=== PATIENT | male | born 1970 | race Caucasian/White ===

== ENCOUNTER → 2020-08-01 18:16 | Outpatient (CLI) | payer MEDICAID, SELFPAY ==
[2020-08-01 18:30] LABS: Basophils # 0.1 K/mm3 (0-0.2); Basophils % 0.9 % (0.1-2.0); Eosinophils # 0.1 K/mm3 (0.0-0.4); Eosinophils % 1.6 % (0.1-12.0); Hematocrit 54.3 % (42.0-52.0); Hemoglobin 17.7 g/dL (14.1-18.0); Lymphocytes # 1.2 K/mm3 (0.7-4.5); Lymphocytes % 18.9 % (10-50); Mean Corpuscular HGB Conc 32.5 g/dL (31.8-35.4); Mean Corpuscular Hemoglobin 30.6 pg (27.0-31.2); Mean Corpuscular Volume 94.2 fl (80-94); Mean Platelet Volume 11.9 fl (7.4-10.4); Monocytes # 0.5 K/mm3 (0.1-1.0); Monocytes % 8.7 % (1.7-9.3); Neutrophils # 4.3 K/mm3 (1.8-7.8); Neutrophils % 69.9 % (37.0-80.0); Platelet Count 125 K/mm3 (142-424); Red Blood Count 5.77 M/mm3 (4.60-6.20); Red Cell Distribution Width 13.4 % (11.5-17.5); White Blood Count 6.1 K/mm3 (4.8-10.8)
[2020-08-01 18:35] LABS: Alanine Aminotransferase 53 U/L (12-78); Albumin Level 4.3 g/dl (3.5-5.0); Albumin/Globulin Ratio 1.8 (1.1-1.8); Alkaline Phosphatase 159 U/L (38-126); Aspartate Amino Transferase 37 U/L (17-59); Bilirubin,Total 0.5 mg/dl (0.2-1.3); Blood Urea Nitrogen 10 mg/dl (9-20); Calcium 9.3 mg/dl (8.4-10.2); Carbon Dioxide 24 mmol/L (22.0-30.0); Chloride 102 mmol/L (98-107); Chol/HDL Ratio 4.3 (1-3.5); Cholesterol 188 mg/dl (140-200); Estimated Glomerular Filt Rate 103 ml/min (>60); GFR (African American) 125 ML/MIN (>60); Globulin 2.4 g/dL (1.3-3.2); Glucose 286 mg/dl (74-100); HDL Cholesterol 44 mg/dl (40-60); Sodium 138 mmol/L (136-145); Total Protein,Serum 6.7 g/dl (6.3-8.2); Triglycerides 382 mg/dl (30-150); VLDL Cholesterol 76 mg/dL (0-40)
[2020-08-01 18:46] LABS: Direct LDL Cholesterol 88.86 mg/dL (100-129)
[2020-08-01 18:53] LABS: 25-OH Vitamin D, Total 37.1 ng/mL (30-100)
[2020-08-01 18:54] LABS: T4 (Thyroxine) 11.4 ug/dl (5.53-11.0)
[2020-08-01 19:07] LABS: Thyroid Stimulating Hormone 0.92 uIU/mL (0.465-4.68)
[2020-08-01 20:05] LABS: Creatinine,Urine Random 36 mg/dL (Not Estab.); Hemoglobin A1C 9.7 % (4.0-6.0); Microalbumin < 6.000 mg/L (0-16.7)
[2020-08-05 18:55] LABS: Testosterone, Total, LC/MS 149.8 ng/dL (264.0-916.0); Testosterone,Free 3.9 pg/mL (6.8-21.5)
== END ==
PROVIDERS: Visit Provider Family Medicine
DX: E11.9 Type 2 diabetes mellitus without complications (principal); Z79.84 Long term (current) use of oral hypoglycemic drugs
CPT/HCPCS: 80053; 80061; 82043; 82306; 82570; 83036; 84402; 84403; 84436; 84443; 85025

== ENCOUNTER → 2020-10-31 13:56 | Outpatient (CLI) | payer MEDICAID, SELFPAY ==
[2020-10-31 14:13] LABS: Alanine Aminotransferase 37 U/L (12-78); Albumin Level 4.4 g/dl (3.5-5.0); Albumin/Globulin Ratio 1.6 (1.1-1.8); Alkaline Phosphatase 112 U/L (38-126); Anion Gap 11.5 mEq/L (5-15); Aspartate Amino Transferase 35 U/L (17-59); Bilirubin,Total 0.4 mg/dl (0.2-1.3); Blood Urea Nitrogen 15 mg/dl (9-20); Calcium 9.5 mg/dl (8.4-10.2); Carbon Dioxide 29 mmol/L (22.0-30.0); Chloride 103 mmol/L (98-107); Estimated Glomerular Filt Rate 103 ml/min (>60); GFR (African American) 125 ML/MIN (>60); Globulin 2.8 g/dL (1.3-3.2); Glucose 135 mg/dl (74-100); Potassium 4.5 mmoL/L (3.5-5.1); Sodium 139 mmol/L (136-145); Total Protein,Serum 7.2 g/dl (6.3-8.2)
[2020-10-31 14:17] LABS: Hemoglobin A1C 7.1 % (4.0-6.0)
[2020-11-01 19:34] LABS: Testosterone,Total 301 ng/dL (264-916)
== END ==
PROVIDERS: Visit Provider Family Medicine
DX: E11.9 Type 2 diabetes mellitus without complications (principal); N52.9 Male erectile dysfunction, unspecified; Z79.84 Long term (current) use of oral hypoglycemic drugs
CPT/HCPCS: 80053; 83036; 84403

== ENCOUNTER → 2021-02-27 15:41 | Outpatient (CLI) | payer MEDICAID, SELFPAY ==
[2021-02-27 16:57] LABS: Basophils # 0.1 K/mm3 (0-0.2); Basophils % 0.8 % (0.1-2.0); Eosinophils # 0.1 K/mm3 (0.0-0.4); Hematocrit 50.8 % (42.0-52.0); Lymphocytes # 1.5 K/mm3 (0.7-4.5); Lymphocytes % 21.3 % (10-50); Mean Corpuscular HGB Conc 33.5 g/dL (31.8-35.4); Mean Corpuscular Hemoglobin 30.1 pg (27.0-31.2); Mean Corpuscular Volume 89.9 fl (80-94); Mean Platelet Volume 10.5 fl (7.4-10.4); Monocytes # 0.4 K/mm3 (0.1-1.0); Monocytes % 5.4 % (1.7-9.3); Neutrophils # 4.9 K/mm3 (1.8-7.8); Neutrophils % 70.5 % (37.0-80.0); Platelet Count 176 K/mm3 (142-424); Red Blood Count 5.66 M/mm3 (4.60-6.20); Red Cell Distribution Width 13.1 % (11.5-17.5); White Blood Count 6.9 K/mm3 (4.8-10.8)
[2021-02-27 17:26] LABS: Alanine Aminotransferase 62 U/L (12-78); Albumin Level 4.4 g/dl (3.5-5.0); Albumin/Globulin Ratio 1.7 (1.1-1.8); Alkaline Phosphatase 189 U/L (38-126); Anion Gap 14.4 mEq/L (5-15); Aspartate Amino Transferase 44 U/L (17-59); Bilirubin,Total 0.6 mg/dl (0.2-1.3); Blood Urea Nitrogen 13 mg/dl (9-20); Calcium 9.1 mg/dl (8.4-10.2); Carbon Dioxide 22 mmol/L (22.0-30.0); Chloride 103 mmol/L (98-107); Estimated Glomerular Filt Rate 120 ml/min (>60); GFR (African American) 145 ML/MIN (>60); Globulin 2.6 g/dL (1.3-3.2); Glucose 385 mg/dl (74-100); Potassium 4.4 mmoL/L (3.5-5.1); Sodium 135 mmol/L (136-145)
[2021-02-27 19:12] LABS: Hemoglobin A1C 10.8 % (4.0-6.0)
[2021-03-03 16:40] LABS: Testosterone, Total, LC/MS 230.4 ng/dL (264.0-916.0)
== END ==
PROVIDERS: Visit Provider Family Medicine
DX: E11.9 Type 2 diabetes mellitus without complications (principal); E29.1 Testicular hypofunction; N52.9 Male erectile dysfunction, unspecified; Z79.4 Long term (current) use of insulin
CPT/HCPCS: 80053; 83036; 84403; 85025

== ENCOUNTER → 2021-04-17 13:49 | Outpatient (CLI) | payer MEDICAID, SELFPAY ==
[2021-04-17 13:59] LABS: Alanine Aminotransferase 39 U/L (12-78); Albumin Level 4.4 g/dl (3.5-5.0); Albumin/Globulin Ratio 1.8 (1.1-1.8); Alkaline Phosphatase 104 U/L (38-126); Anion Gap 10.6 mEq/L (5-15); Aspartate Amino Transferase 36 U/L (17-59); Bilirubin,Total 0.7 mg/dl (0.2-1.3); Blood Urea Nitrogen 13 mg/dl (9-20); Calcium 9.2 mg/dl (8.4-10.2); Carbon Dioxide 30 mmol/L (22.0-30.0); Chloride 103 mmol/L (98-107); Estimated Glomerular Filt Rate 120 ml/min (>60); GFR (African American) 145 ML/MIN (>60); Globulin 2.5 g/dL (1.3-3.2); Glucose 160 mg/dl (74-100); Potassium 4.6 mmoL/L (3.5-5.1); Sodium 139 mmol/L (136-145); Total Protein,Serum 6.9 g/dl (6.3-8.2)
[2021-04-17 14:46] LABS: Hemoglobin A1C 8.8 % (4.0-6.0)
== END ==
PROVIDERS: Visit Provider Family Medicine
DX: E11.9 Type 2 diabetes mellitus without complications (principal); Z79.84 Long term (current) use of oral hypoglycemic drugs
CPT/HCPCS: 80053; 83036

== ENCOUNTER → 2021-06-05 18:09 | Outpatient (CLI) | payer MEDICAID, SELFPAY ==
[2021-06-05 19:12] LABS: Alanine Aminotransferase 31 U/L (12-78); Albumin Level 4.2 g/dl (3.5-5.0); Albumin/Globulin Ratio 1.5 (1.1-1.8); Alkaline Phosphatase 115 U/L (38-126); Anion Gap 14.7 mEq/L (5-15); Aspartate Amino Transferase 35 U/L (17-59); Bilirubin,Total 0.5 mg/dl (0.2-1.3); Blood Urea Nitrogen 16 mg/dl (9-20); Calcium 9.3 mg/dl (8.4-10.2); Carbon Dioxide 28 mmol/L (22.0-30.0); Chloride 101 mmol/L (98-107); Estimated Glomerular Filt Rate 120 ml/min (>60); GFR (African American) 145 ML/MIN (>60); Globulin 2.8 g/dL (1.3-3.2); Glucose 133 mg/dl (74-100); Potassium 4.7 mmoL/L (3.5-5.1); Sodium 139 mmol/L (136-145)
[2021-06-05 19:13] LABS: Hemoglobin A1C 8.2 % (4.0-6.0)
[2021-06-05 19:42] LABS: Thyroid Stimulating Hormone 1.14 uIU/mL (0.465-4.68)
[2021-06-07 06:30] LABS: Testosterone,Total 268 ng/dL (264-916)
== END ==
PROVIDERS: Visit Provider Family Medicine
DX: E11.9 Type 2 diabetes mellitus without complications (principal); R53.83 Other fatigue; N52.9 Male erectile dysfunction, unspecified; Z79.84 Long term (current) use of oral hypoglycemic drugs
CPT/HCPCS: 80053; 83036; 84403; 84443

== ENCOUNTER → 2021-10-09 17:26 | Outpatient (CLI) | payer MEDICAID, SELFPAY ==
[2021-10-09 19:06] LABS: Alanine Aminotransferase 34 U/L (12-78); Albumin Level 4.7 g/dl (3.5-5.0); Albumin/Globulin Ratio 2.1 (1.1-1.8); Alkaline Phosphatase 115 U/L (38-126); Anion Gap 12.2 mEq/L (5-15); Aspartate Amino Transferase 38 U/L (17-59); Bilirubin,Total 0.8 mg/dl (0.2-1.3); Blood Urea Nitrogen 15 mg/dl (9-20); Calcium 9.5 mg/dl (8.4-10.2); Carbon Dioxide 30 mmol/L (22.0-30.0); Chloride 98 mmol/L (98-107); Chol/HDL Ratio 2.5 (1-3.5); Cholesterol 106 mg/dl (140-200); Estimated Glomerular Filt Rate 103 ml/min (>60); GFR (African American) 124 ML/MIN (>60); Globulin 2.2 g/dL (1.3-3.2); Glucose 216 mg/dl (74-100); HDL Cholesterol 43 mg/dl (40-60); Potassium 4.2 mmoL/L (3.5-5.1); Sodium 136 mmol/L (136-145); Total Protein,Serum 6.9 g/dl (6.3-8.2); Triglycerides 95 mg/dl (30-150); VLDL Cholesterol 19 mg/dL (0-40)
[2021-10-09 19:12] LABS: Hemoglobin A1C 7.3 % (4.0-6.0)
[2021-10-09 19:17] LABS: Direct LDL Cholesterol 41.23 mg/dL (100-129)
[2021-10-09 19:23] LABS: Free T4 (Free Thyroxine) 1.27 ng/dl (0.78-2.19)
[2021-10-09 19:24] LABS: 25-OH Vitamin D, Total 43.4 ng/mL (30-100)
[2021-10-09 19:35] LABS: Creatinine,Urine Random 38 mg/dL (Not Estab.)
[2021-10-09 19:37] LABS: Thyroid Stimulating Hormone 1.01 uIU/mL (0.465-4.68)
[2021-10-09 19:41] LABS: Microalbumin < 6.000 mg/L (0-16.7)
[2021-10-09 19:45] LABS: Basophils % 0.7 % (0.1-2.0); Eosinophils # 0.1 K/mm3 (0.0-0.4); Eosinophils % 0.9 % (0.1-12.0); Hematocrit 54.6 % (42.0-52.0); Hemoglobin 17.4 g/dL (14.1-18.0); Lymphocytes # 1.3 K/mm3 (0.7-4.5); Lymphocytes % 20.9 % (10-50); Mean Corpuscular HGB Conc 31.9 g/dL (31.8-35.4); Mean Corpuscular Hemoglobin 30.8 pg (27.0-31.2); Mean Corpuscular Volume 96.7 fl (80-94); Mean Platelet Volume 10.3 fl (7.4-10.4); Monocytes # 0.4 K/mm3 (0.1-1.0); Monocytes % 6.1 % (1.7-9.3); Neutrophils # 4.4 K/mm3 (1.8-7.8); Neutrophils % 71.4 % (37.0-80.0); Platelet Count 194 K/mm3 (142-424); Red Blood Count 5.65 M/mm3 (4.60-6.20); Red Cell Distribution Width 13.2 % (11.5-17.5); White Blood Count 6.2 K/mm3 (4.8-10.8)
== END ==
PROVIDERS: Visit Provider Nurse Practitioner Family
DX: E03.9 Hypothyroidism, unspecified (principal); E11.9 Type 2 diabetes mellitus without complications; R53.83 Other fatigue; K59.00 Constipation, unspecified; Z79.4 Long term (current) use of insulin
CPT/HCPCS: 80053; 80061; 82043; 82306; 82570; 83036; 84439; 84443; 85025

== ENCOUNTER → 2022-01-01 16:56 | Outpatient (CLI) | payer MEDICAID, SELFPAY ==
[2022-01-01 13:49] LABS: Alanine Aminotransferase 38 U/L (12-78); Albumin Level 4.1 g/dl (3.5-5.0); Albumin/Globulin Ratio 1.9 (1.1-1.8); Alkaline Phosphatase 106 U/L (38-126); Anion Gap 13.5 mEq/L (5-15); Aspartate Amino Transferase 35 U/L (17-59); Bilirubin,Total 0.5 mg/dl (0.2-1.3); Blood Urea Nitrogen 19 mg/dl (9-20); Calcium 8.7 mg/dl (8.4-10.2); Carbon Dioxide 25 mmol/L (22.0-30.0); Chloride 102 mmol/L (98-107); Chol/HDL Ratio 3.5 (1-3.5); Cholesterol 149 mg/dl (140-200); Estimated Glomerular Filt Rate 119 ml/min (>60); GFR (African American) 144 ML/MIN (>60); Globulin 2.2 g/dL (1.3-3.2); Glucose 238 mg/dl (74-100); HDL Cholesterol 43 mg/dl (40-60); Potassium 4.5 mmoL/L (3.5-5.1); Sodium 136 mmol/L (136-145); Total Protein,Serum 6.3 g/dl (6.3-8.2); Triglycerides 181 mg/dl (30-150); VLDL Cholesterol 36 mg/dL (0-40)
[2022-01-01 14:00] LABS: Basophils # 0.1 K/mm3 (0-0.2); Basophils % 1.1 % (0.1-2.0); Eosinophils # 0.1 K/mm3 (0.0-0.4); Eosinophils % 1.6 % (0.1-12.0); Hematocrit 53.2 % (42.0-52.0); Hemoglobin 17.1 g/dL (14.1-18.0); Lymphocytes # 1.3 K/mm3 (0.7-4.5); Lymphocytes % 19.7 % (10-50); Mean Corpuscular HGB Conc 32.2 g/dL (31.8-35.4); Mean Corpuscular Hemoglobin 31.4 pg (27.0-31.2); Mean Corpuscular Volume 97.7 fl (80-94); Mean Platelet Volume 10.8 fl (7.4-10.4); Monocytes # 0.4 K/mm3 (0.1-1.0); Neutrophils # 4.5 K/mm3 (1.8-7.8); Neutrophils % 70.6 % (37.0-80.0); Platelet Count 190 K/mm3 (142-424); Red Blood Count 5.45 M/mm3 (4.60-6.20); Red Cell Distribution Width 13.6 % (11.5-17.5); White Blood Count 6.3 K/mm3 (4.8-10.8)
[2022-01-01 14:01] LABS: Direct LDL Cholesterol 64.51 mg/dL (100-129)
[2022-01-01 14:07] LABS: 25-OH Vitamin D, Total 31.5 ng/mL (30-100); T4 (Thyroxine) 11.7 ug/dl (5.53-11.0)
[2022-01-01 14:21] LABS: Thyroid Stimulating Hormone 1.35 uIU/mL (0.465-4.68)
[2022-01-01 15:03] LABS: Hemoglobin A1C 7.5 % (4.0-6.0)
[2022-01-02 10:20] LABS: C-Peptide 4.2 ng/mL (1.1-4.4)
== END ==
PROVIDERS: Visit Provider Nurse Practitioner Family
DX: E11.9 Type 2 diabetes mellitus without complications (principal); E66.3 Overweight; Z68.32 Body mass index [BMI] 32.0-32.9, adult; Z79.4 Long term (current) use of insulin
CPT/HCPCS: 80053; 80061; 82306; 83036; 84436; 84443; 84681; 85025

== ENCOUNTER → 2022-04-23 14:22 | Outpatient (CLI) | payer MEDICAID, SELFPAY ==
[2022-04-23 14:35] LABS: Hemoglobin A1C 7.5 % (4.0-6.0)
== END ==
PROVIDERS: PCP Family Medicine; Visit Provider Family Medicine
DX: E11.9 Type 2 diabetes mellitus without complications (principal); Z79.4 Long term (current) use of insulin
CPT/HCPCS: 83036

== ENCOUNTER → 2022-05-17 09:47 | Outpatient (CLI) | payer MEDICAID, SELFPAY ==
--- NOTE | 2022-05-17 09:50 | XR_ITS ---
FINAL REPORT CLINICAL HISTORY: left shoulder pain FINDINGS: Internal and external rotation views of the left shoulder were obtained. There is no prior exam for comparison. There is no fracture or dislocation. There is mild acromioclavicular joint degenerative disease. Soft tissues are normal. IMPRESSION: Degenerative change with no acute osseous abnormality of the left shoulder. Reviewed, Interpreted and Dictated by Rafaela Huntley MD Transcribed by Feli Rdz Authenticated and [facility]
--- NOTE | 2022-05-17 09:50 | XR_ITS ---
FINAL REPORT CLINICAL HISTORY: right shoulder pain FINDINGS: Internal and external rotation views of the right shoulder were obtained. There is no prior exam for comparison. There is no fracture or dislocation. The joint space is preserved. Soft tissues are normal. IMPRESSION: No acute osseous abnormality of the right shoulder. Reviewed, Interpreted and Dictated by Rafaela Huntley MD Transcribed by Feli Rdz Authenticated and [facility]
== END ==
PROVIDERS: PCP Family Medicine; Visit Provider Orthopaedic Surgery
DX: M25.512 Pain in left shoulder (principal); M25.511 Pain in right shoulder
CPT/HCPCS: 73030

== ENCOUNTER → 2022-12-04 11:00 | Outpatient (CLI) | payer MEDICAID, SELFPAY ==
[2022-12-04 14:37] LABS: Microalbumin/Creatinine Ratio 7.6
[2022-12-04 14:39] LABS: Creatinine,Urine Random 93 mg/dL (Not Estab.)
[2022-12-04 15:09] LABS: Hemoglobin A1C 8.2 % (4.0-6.0)
[2022-12-13 15:24] LABS: Testosterone, Total, LC/MS 144.2 ng/dL (264.0-916.0); Testosterone,Free 1.2 pg/mL (7.2-24.0)
== END ==
PROVIDERS: PCP Family Medicine; Visit Provider Family Medicine
DX: E11.9 Type 2 diabetes mellitus without complications (principal); Z79.4 Long term (current) use of insulin; E29.1 Testicular hypofunction
CPT/HCPCS: 82043; 82570; 83036; 84402; 84403

== ENCOUNTER → 2023-03-05 13:23 | Outpatient (CLI) | payer MEDICAID, SELFPAY ==
[2023-03-05 13:04] LABS: Creatinine,Urine Random 81 mg/dL (Not Estab.); Microalbumin < 6.000 mg/L (0-16.7)
== END ==
PROVIDERS: PCP Family Medicine; Visit Provider Family Medicine
DX: E11.9 Type 2 diabetes mellitus without complications (principal); Z79.4 Long term (current) use of insulin
CPT/HCPCS: 82043; 82570

== ENCOUNTER → 2023-07-02 09:36 | Outpatient (CLI) | payer MEDICAID, SELFPAY ==
[2023-07-01 19:53] LABS: Alanine Aminotransferase 31 U/L (12-78); Albumin Level 4.1 g/dl (3.5-5.0); Albumin/Globulin Ratio 1.4 (1.1-1.8); Alkaline Phosphatase 105 U/L (38-126); Anion Gap 8.3 mEq/L (5-15); Aspartate Amino Transferase 45 U/L (17-59); Bilirubin,Total 0.8 mg/dl (0.2-1.3); Blood Urea Nitrogen 12 mg/dl (9-20); Calcium 8.6 mg/dl (8.4-10.2); Carbon Dioxide 29 mmol/L (22.0-30.0); Chloride 104 mmol/L (98-107); Chol/HDL Ratio 5.4 (1-3.5); Cholesterol 172 mg/dl (140-200); Estimated Glomerular Filt Rate 89 ml/min (>60); GFR (African American) 108 ML/MIN (>60); Globulin 2.9 g/dL (1.3-3.2); Glucose 186 mg/dl (74-100); HDL Cholesterol 32 mg/dl (40-60); Potassium 4.3 mmoL/L (3.5-5.1); Sodium 137 mmol/L (136-145); Triglycerides 129 mg/dl (30-150); VLDL Cholesterol 26 mg/dL (0-40)
[2023-07-01 20:04] LABS: Direct LDL Cholesterol 104.73 mg/dL (100-129)
[2023-07-01 20:22] LABS: Hemoglobin A1C 7.2 % (4.0-6.0)
== END ==
PROVIDERS: PCP Family Medicine; Visit Provider Family Medicine
DX: E11.9 Type 2 diabetes mellitus without complications (principal); Z79.4 Long term (current) use of insulin; Z79.84 Long term (current) use of oral hypoglycemic drugs
CPT/HCPCS: 80053; 80061; 83036

== ENCOUNTER 2023-12-02 18:32 | Outpatient (CLI) | payer MEDICAID, SELFPAY ==
[2023-12-02 18:12] LABS: Basophils # 0.2 K/mm3 (0-0.2); Basophils % 1.3 % (0.1-2.0); Eosinophils # 0.1 K/mm3 (0.0-0.4); Eosinophils % 0.9 % (0.1-12.0); Lymphocytes # 2.8 K/mm3 (0.7-4.5); Lymphocytes % 24.1 % (10-50); Mean Corpuscular HGB Conc 31.6 g/dL (31.8-35.4); Mean Corpuscular Hemoglobin 30.8 pg (27.0-31.2); Mean Corpuscular Volume 97.7 fl (80-94); Mean Platelet Volume 10.3 fl (7.4-10.4); Monocytes # 0.8 K/mm3 (0.1-1.0); Monocytes % 7.2 % (1.7-9.3); Neutrophils # 7.7 K/mm3 (1.8-7.8); Neutrophils % 66.5 % (37.0-80.0); Platelet Count 232 K/mm3 (142-424); Red Blood Count 6.06 M/mm3 (4.60-6.20); Red Cell Distribution Width 13.8 % (11.5-17.5); White Blood Count 11.6 K/mm3 (4.8-10.8)
[2023-12-02 18:33] LABS: Hematocrit 59.2 % (42.0-52.0)
[2023-12-02 18:34] LABS: Hemoglobin 18.7 g/dL (14.1-18.0)
[2023-12-02 19:10] LABS: Prostate Specific Ag Screen 2.3 ng/ml (0.0-4.0)
[2023-12-04 09:21] LABS: Testosterone,Total 477 ng/dL (264-916)
== END 2023-12-02 23:59 ==
LOC: LAB.DROPOF 18:32
PROVIDERS: PCP Family Medicine; Visit Provider Family Medicine
DX: E11.9 Type 2 diabetes mellitus without complications (principal); N52.1 Erectile dysfunction due to diseases classified elsewhere; Z79.4 Long term (current) use of insulin; Z79.84 Long term (current) use of oral hypoglycemic drugs
CPT/HCPCS: 84403; 85025; G0103

== ENCOUNTER 2024-01-27 14:00 | Outpatient (RCR) | payer MEDICAID, SELFPAY ==
--- NOTE | 2024-01-15 15:06 | HMH.OTOPEV ---
OT Inpatient Evaluation Rehab OT Outpatient Eval Start: 01/15/24 14:56 Freq: Status: Active Protocol: Document 01/15/24 14:56 [email or web address] (Rec: 01/15/24 15:03 OSITO [id number]) E-signed By Sanjuana [place], OT Outpatient Therapy Subjective History Subjective History 53 year old male referred to skilled OP OT services for B shld pain. Patient reported having B UE shld pain for over 3 months with no relief. No images done at this time. 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 New diagnosis of cancer in past 12 No months? Chief Complaint Pain,Weakness Symptom Type Ache Symptoms Relieved By Nothing Symptoms Aggravated By Physical Activity Prior Functional Limitations None Current Functional Limitations Reaching,Lifting,Sleeping, Recreation Activity Symptom Description Constant and Continuous Level of pain today (0-10) 4 Pain scale - at its best (0-10) 4 Pain scale - at its worst (0-10) 9 Shoulder/Elbow Eval Shoulder Objective Measurements Shoulder ROM Bilateral Shoulder Abduction Active Range of 130 Motion (degrees) Shoulder Flexion Active Range of Motion 130 (degrees) Query Text: Shoulder External Rotation Active Range 50 of Motion (degrees) Shoulder Internal Rotation Active Range 40 of Motion (degrees) pain with active ROM shoulder exam bilateral standard pain with passive ROM shoulder exam bilateral standard Shoulder MMT Shoulder Abduction Strength Grade 3- Fair- Shoulder Extension Strength Grade 3- Fair- Shoulder Flexion Strength Grade 3- Fair- Shoulder Horizontal Abduction Strength 3- Fair- Grade Shoulder Horizontal Adduction Strength 3- Fair- Grade Infraspinatus/Teres Minor Strength Grade 3- Fair- Shoulder External Rotation Strength 3- Fair- Grade Shoulder Internal Rotation Strength 3- Fair- Grade Shoulder Special Tests impingement sign present shoulder exam bilateral standard Shoulder Gupta-Heraclio Impingement Positive Left,Positive Right Test Elbow Objective Measurements QuickDASH Activities Please rate your ability to do the following activities in the last week by selecting the number below the appropriate response. 1. Open a tight or new jar. Severe difficulty 2. Do heavy opticianry teacher (e.g., wash Severe difficulty [place], floors). 3. Carry a shopping bag or briefcase. Mild difficulty 4. Wash your back. Moderate difficulty 5. Use a knife to cut food. Moderate difficulty 6. Recreational activities in which you Severe difficulty take some force or impact through your arm, shoulder, or hand (e.g., golf, hammering, tennis, etc.). 7. During the past week, to what extent Extremely has your arm, shoulder or hand problem interfered with your normal social activities with family, friends, neighbors or groups? 8. During the past week, were you Moderately limited limited in your work or other regular daily activites as a result of your arm, shoulder or hand problem? 9. Arm, shoulder or hand pain. Extreme 10. Tingling (pins and needles) in your Moderate arm, shoulder or hand. 11. During the past week, how much So much difficulty that I can' difficulty have you had sleeping because t sleep of the pain in your arm, shoulder or hand? Quick DASH 41 Work Module (optional) The following questions ask about the impact of your arm, shoulder or hand problem on your ability to work (including homemaking if that is your main work role). Please indicate what your job/work is: does not work Do you work? No OT Outpatient Assessment Impairments Problems/Impairments Impaired Range of Motion, Impaired Strength,Subjective C /O Pain Prognosis Rehab Potential Good Clinical Impression Consistent with Diagnosis Yes Short Term Goals Number of Weeks 2 Increase Range of Motion Yes: Improve AROM of B UE shld flex: 150; abd: 150; er: 60; ir: 50 Increase Strength Yes: Improve B UE shld strength to 3 to 3+/5 throughout Decrease Subjective C/O Pain Yes: 7/10 pain at worst Patient to be Ind w/ HEP Yes: AAROM Patient to be Ind w/ Advanced HEP Yes: Strengthening Improve Quick Dash Score Yes: 35 Hot Die Press Operator Goals Number of Weeks 4 Increase Range of Motion Yes: Improve AROM of B UE shld flex: 160; abd: 160; er: 70; ir: 60 Increase Strength Yes: Improve B UE shld strength to 3+/5 to 4-/5 throughout Decrease Subjective C/O Pain Yes: 5/10 pain at worst Patient to be Ind w/ HEP Yes: AROM Patient to be Ind w/ Advanced HEP Yes: Advance strengthening Improve Quick Dash Score Yes: 30 Outpatient Therapy Plan of Care Treatment Plan May Include Therapeutic Exercise Including Home Yes Exercise Program Manual Therapy Techniques Yes Therapeutic Activities to Return to Yes Previous Functional/Work Level Thermal Modalities Yes Electrical Stimulation Yes Ultrasound/Phonophoresis Yes Iontophoresis Yes Eval/Re-Eval Yes Aquatic Therapy Yes Frequency Times per week 2x/wk Duration Number of Weeks 4 weeks Addendums This patient is a candidate for social No or vocational rehab? Patient/Guardian verbally acknowledges Yes understanding of treatment program and consents to further treatment? Patient/Guardian verbally acknowledges Yes understanding of diagnosis, prognosis and goals for treatment? Eval Complexity OT Charge 69555 - Low Complexity PHYSICIAN CERTIFICATION: I certify the specified therapy services for Milo Wlals are required, authorized, and reviewed every 30 days.
== END 2024-01-27 14:05 | disposition home or self-care (01) ==
LOC: OT 14:00
PROVIDERS: Visit Provider Family Medicine
DX: M25.511 Pain in right shoulder (principal); M25.512 Pain in left shoulder
CPT/HCPCS: 97010; 97014; 97110; 97165; G0283

== ENCOUNTER 2024-02-25 13:37 | Outpatient (CLI) | payer MEDICAID, SELFPAY ==
--- NOTE | 2024-02-25 13:38 | MR_ITS ---
FINAL REPORT CLINICAL HISTORY: BILATERAL SHOULDER PAIN PAIN WHEN LIFTING ARMS FINDINGS: Multiplanar MR imaging of the left shoulder was performed without contrast. Intrasubstance tears are seen of the distal supraspinatus and infraspinatus tendons involving less than 50% of the thickness of the tendons. No full-thickness rotator cuff tear is identified. There is mild AC joint arthrosis. A small amount of fluid is present in the subacromial/subdeltoid bursa. The labrum is suboptimally visualized, but there is abnormal signal in the superior labrum worrisome for a SLAP tear. The long head of the biceps tendon is intact. No significant glenohumeral joint effusion is seen. There is no evidence of fracture or dislocation. The musculature is intact. There is no evidence of soft tissue mass. IMPRESSION: Small intrasubstance tears of the distal supraspinatus and infraspinatus tendons. Findings worrisome for a SLAP tear. Authenticated and [facility]
--- NOTE | 2024-02-25 13:38 | MR_ITS ---
FINAL REPORT CLINICAL HISTORY: BILATERAL SHOULDER PAIN PAIN WHEN LIFTING ARMS FINDINGS: Multiplanar MR imaging of the right shoulder was performed without contrast. Many of the images are degraded by motion artifact. A partial-thickness articular surface tear is seen of the distal supraspinatus tendon involving greater than 50% of the thickness of the tendon. Also noted is a partial-thickness articular surface tear of the distal infraspinatus tendon involving less than 50% of the thickness of the tendon. No definite full-thickness rotator cuff tear is identified. There is mild AC joint arthrosis. A small amount of fluid is present in the subacromial/subdeltoid bursa. The labrum is somewhat obscured by motion, but there is a linear increased signal in the superior labrum visualized on series 4 images 12 and 13 worrisome for a SLAP tear. The long head of the biceps tendon is intact. A small glenohumeral joint effusion is seen. There is no evidence of fracture or dislocation. The musculature is intact. Subchondral cysts are seen in the anterior humeral head with adjacent bone marrow edema. IMPRESSION: Findings worrisome for a SLAP tear. Partial-thickness articular surface tear of the distal supraspinatus tendon involving greater than 50% of the thickness of the tendon. Partial-thickness articular surface tear of the distal infraspinatus tendon involving less than 50% of the thickness of the tendon. Authenticated and [facility]
== END 2024-02-25 23:59 | disposition home or self-care (01) ==
LOC: RAD 13:38
PROVIDERS: PCP Family Medicine; Visit Provider Family Medicine
DX: M25.511 Pain in right shoulder (principal); M25.512 Pain in left shoulder
CPT/HCPCS: 73221

== ENCOUNTER 2024-04-09 14:20 | Outpatient (CLI) | payer MEDICAID, SELFPAY ==
--- NOTE | 2024-04-09 14:28 | XR_ITS ---
FINAL REPORT CLINICAL HISTORY: mike shoulder pain FINDINGS: 2 views of the left shoulder were obtained. There are mild degenerative changes of the acromioclavicular joint. There is no fracture or dislocation. The joint space is preserved. Soft tissues are normal. IMPRESSION: No acute osseous abnormality of the left shoulder. Reviewed, Interpreted and Dictated by Rafaela Huntley MD Transcribed by Nguyen Sexton Authenticated and [facility]
--- NOTE | 2024-04-09 14:39 | XR_ITS ---
FINAL REPORT CLINICAL HISTORY: Right Shoulder pain FINDINGS: 2 views of the right shoulder were obtained. There are mild degenerative changes of the acromioclavicular joint. There is no fracture or dislocation. The joint space is preserved. Soft tissues are normal. IMPRESSION: No acute osseous abnormality of the right shoulder. Reviewed, Interpreted and Dictated by Rafaela Huntley MD Transcribed by Nguyen Sexton Authenticated and [facility]
== END 2024-04-09 23:59 | disposition home or self-care (01) ==
PROVIDERS: PCP Family Medicine; Visit Provider Orthopaedic Surgery
DX: M25.511 Pain in right shoulder (principal); M25.512 Pain in left shoulder
CPT/HCPCS: 73030

== ENCOUNTER 2024-09-11 10:51 | Outpatient (CLI) | payer MEDICAID, SELFPAY ==
--- NOTE | 2024-09-11 11:47 | ECG_ITS ---
APPROVED REPORT Exam: Resting ECG HR:74 bpm ECG Measurements Heart Rate 74 AXES ME 136 P 16 QRSd 107 QRS -19 QT 381 T 19 QTc 409 Conclusion SINUS RHYTHM MINIMAL VOLTAGE CRITERIA FOR LVH, CONSIDER NORMAL VARIANT [MEETS CRITERIA IN ONE OF: R(aVL), S(V1), R(V5), R(V5/V6)+S(V1)] BORDERLINE ECG UNCONFIRMED REPORT Electronically signed by : Paulie Arita MD 09/19/2024 13:43:30
[2024-09-11 11:52] VITALS: BMI 37.5
[2024-09-11 12:18] LABS: Chloride 102 mmol/L (98-107); Potassium 3.9 mmoL/L (3.5-5.1); Sodium 132 mmol/L (136-145)
[2024-09-11 12:21] LABS: Anion Gap 4.9 mEq/L (5-15); Blood Urea Nitrogen 15 mg/dl (9-20); Carbon Dioxide 29 mmol/L (22.0-30.0); Creatinine Clearance Estimated 121 mL/min (50-200); Estimated Glomerular Filt Rate 70 ml/min (>60); GFR (African American) 85 ML/MIN (>60)
[2024-09-11 12:22] LABS: Calcium 8.2 mg/dl (8.4-10.2); Glucose 265 mg/dl (74-100)
[2024-09-11 12:59] LABS: Hematocrit 51.1 % (42.0-52.0); Hemoglobin 16.9 g/dL (14.1-18.0); Mean Corpuscular Volume 90.6 fl (80-94); Red Blood Count 5.64 M/mm3 (4.60-6.20); White Blood Count 6.3 K/mm3 (4.8-10.8)
[2024-09-11 13:00] LABS: Mean Corpuscular HGB Conc 33.1 g/dL (31.8-35.4); Platelet Count 126 K/mm3 (142-424); Red Cell Distribution Width 12.4 % (11.5-17.5)
[2024-09-11 13:02] LABS: Mean Platelet Volume 12.7 fl (7.4-10.4)
[2024-09-11 13:50] LABS: Neutrophils % 68.3 % (37.0-80.0)
[2024-09-11 13:51] LABS: Basophils # 0.1 K/mm3 (0-0.2); Basophils % 0.9 % (0.1-2.0); Eosinophils # 0.1 K/mm3 (0.0-0.4); Eosinophils % 1.6 % (0.1-12.0); Lymphocytes # 1.2 K/mm3 (0.7-4.5); Lymphocytes % 18.7 % (10-50); Monocytes # 0.6 K/mm3 (0.1-1.0); Monocytes % 9.9 % (1.7-9.3); Neutrophils # 4.4 K/mm3 (1.8-7.8)
== END 2024-09-11 23:59 | disposition home or self-care (01) ==
LOC: PREOP 10:52
PROVIDERS: Nurse Anesthetist, Certified Registered; PCP Family Medicine; Visit Provider Orthopaedic Surgery
DX: R94.31 Abnormal electrocardiogram [ECG] [EKG] (principal)
CPT/HCPCS: 80048; 85025; 93005

== ENCOUNTER 2024-11-06 06:02 | Day surgery (SDC) | payer MEDICAID, SELFPAY ==
[2024-11-03 12:08] VITALS: BMI 37.5
[2024-11-06] VITALS (10 sets, daily range): BP systolic 135–169; BP diastolic 81–96; PULSE 79–96; RESP 16–20; TEMP 36.3–36.4; O2SAT 92–98
[2024-11-06] MEDS: LACTATED RINGERS 1000ML 1,000 ML 100 ML IV (06:59)
[2024-11-06 07:35] LABS: Basophils # 0.1 K/mm3 (0-0.2); Basophils % 0.8 % (0.1-2.0); Eosinophils # 0.2 K/mm3 (0.0-0.4); Eosinophils % 1.7 % (0.1-12.0); Hematocrit 51.8 % (42.0-52.0); Hemoglobin 17.3 g/dL (14.1-18.0); Lymphocytes # 1.6 K/mm3 (0.7-4.5); Lymphocytes % 18.8 % (10-50); Mean Corpuscular HGB Conc 33.4 g/dL (31.8-35.4); Mean Corpuscular Hemoglobin 29.6 pg (27.0-31.2); Mean Corpuscular Volume 88.7 fl (80-94); Mean Platelet Volume 11.1 fl (7.4-10.4); Monocytes # 0.9 K/mm3 (0.1-1.0); Monocytes % 9.8 % (1.7-9.3); Neutrophils % 68.3 % (37.0-80.0); Platelet Count 190 K/mm3 (142-424); Red Blood Count 5.84 M/mm3 (4.60-6.20); Red Cell Distribution Width 12.1 % (11.5-17.5); White Blood Count 8.7 K/mm3 (4.8-10.8)
[2024-11-06 07:47] LABS: Chloride 97 mmol/L (98-107); Sodium 135 mmol/L (136-145)
[2024-11-06 07:48] LABS: Potassium 4.1 mmoL/L (3.5-5.1)
[2024-11-06 07:50] LABS: Anion Gap 11.1 mEq/L (5-15); Blood Urea Nitrogen 17 mg/dl (9-20); Carbon Dioxide 31 mmol/L (22.0-30.0); Creatinine Clearance Estimated 133 mL/min (50-200); Estimated Glomerular Filt Rate 78 ml/min (>60); GFR (African American) 95 ML/MIN (>60)
[2024-11-06 07:51] LABS: Calcium 8.6 mg/dl (8.4-10.2); Glucose 171 mg/dl (74-100)
[2024-11-06] MEDS: CEFAZOLIN SODIUM 2 GM in 0.9 % SODIUM CHLORIDE 100 ML IV (08:15)
[2024-11-06] MEDS: EPINEPHrine 1MG/ML 30ML VIAL 30 MG (08:40)
--- NOTE | 2024-11-06 10:04 | P.OP_ITS ---
Date of procedure: 11/06/24 Pre-op Diagnosis:: Right shoulder SLAP tear Right shoulder rotator cuff tear Right shoulder impingement Post-op Diagnosis:: Same Procedure performed:: 1. Right shoulder arthroscopy with arthroscopic rotator cuff repair 2. Right shoulder arthroscopy with superior labral anterior to posterior repair Surgeon:: Zion Spencer DO Fuel Distribution System Operator(s):: John MCKEON Anesthesia: GETA and regional Estimated blood loss (mL): 0 Operative findings:: See dictation Operative note:: Patient notified preoperatively. Right shoulder marked with yes and my initials. Transported operative suite after undergoing a block with anesthesia. Then placed upon the operating bed general anesthesia administered airway secured. Placed in the lateral position on the beanbag with all bony prom inences well-padded axillary roll placed to right arm placed inline traction with the lateral arm vega. Right shoulder prepped and draped normal sterile fashion. Once prepped and draped final operative timeout performed to identify proper patient procedure and extremity. Everyone involved the case agreed. There is no counter indications to beginning. Did receive preoperative antibiotics. Marking pen was used to lupe the bony landmarks of the shoulder and standard portal sites. Skin knife is used to incise standard posterior viewing portal and blunt with trocar was placed in the glenohumeral joint. So exchanged with a camera I went directly above the subscapularis to the anterior aspect of the shoulder where the anterior working portal was made and purple cannula was placed. Diagnostic arthroscopy began. Upon entering the anterior aspect of the shoulder there was some mild interbody tearing of the subscapularis tendon tensions brought in the glenohumeral joint there was a displaced unstable SLAP tear of the superior labrum. Attention was then brought to repair of the labrum. Rasp was placed to prepare the insertion bed of the superior labrum back to the glenoid. Tensions then brought to repair of the anterior aspect of the SLAP tear. Passer was placed through the anterior labrum and drill was utilized to drill for the push lock push lock anchors were placed anteriorly to repair the labrum back to the glenoid additional push lock placed posteriorly to repair the SLAP tear this was stable repair anchoring the superior labrum and biceps stably back to the glenoid. Attention was then brought to the subscapularis tear there is interbody tear which was debrided electrocautery was used to debride there was no full- thickness displaced tear of the subscapularis. Attention was then brought superior to the rotator cuff there was evidence of tearing on the articular surface of the rotator cuff this was debrided with a sucker shaver. Attention was then brought the subacromial space. There was a fair amount of subacromial bursitis which was debrided. And attention was brought to the rotator cuff which was nearly fully torn at the insertion site supraspinatus. Debridement of the edge was performed. An rotator cuff was repaired in a standard fashion with the Arthrex speed fix method with fiber tape placed through the rotator cuff and single swivel lock anchor 4.75 mm. This concluded the rotator cuff repair bursectomy completed can remove joint drain skin closed nylon stitch sterile dressing placed. Patient with anesthesia taken recovery in stable condition with a shoulder sling and pillow. Condition: stable Disposition: PACU Complications:: None apparent
--- NOTE | 2024-11-06 10:11 | P.PNANES_ITS ---
[facility] Disclaimer: The information contained in this section may have been updated after the patient was seen, as this information can be updated by other users. Medical History (Updated 11/06/24 @ 06:53 by Sadaf Alba RN) Depression Diabetes Surgical History History of removal of cyst History of cholecystectomy H/O neck surgery Family History (Updated 11/06/24 @ 06:53 by Sadaf Alba RN) Other Family history of diabetes mellitus Family history of heart disease Family history of lung cancer Lymphoma Pancreatic cancer Social History (Updated 11/06/24 @ 06:54 by Sadaf Alba RN) Smoking Status: Never smoker alcohol intake: never substance use type: denies use current occupational status: unemployed Travel in the last 8 weeks: None household members: spouse and family housing: house Have you lived/traveled outside [place] in past 30 days?: No Contact w/someone who lives/traveled outside US past 30 days?: No Exposure to someone with infectious disease in past 14 days?: No Do you have a fever (greater than 100.4 F or 38 C)?: No Have you tested positive for COVID-19: No Exposed to someone with COVID-19 in past 14 days?: No Do you have a sore throat?: No Do you have a cough?: No Do you have any weakness?: No Are you experiencing any nausea/vomitting?: No Do you have any diarrhea?: No Are you experiencing any unusual bleeding?: No Do you have any muscle aches/pain?: No Do you have any abdominal pain?: No Are you experiencing loss of taste or smell?: No [facility] Anesthesia Checklist Patient Identification Patient Identification: Arm Band and Verbal (Name & ) Structural Data Admitted From: Home Planned Operative Procedure/s: shoulder arthroscopy Consent for Planned Operative Procedure(s) Verified: Yes Verified Documents: Surgical Consent and History and Physical NPO Status Verified Time NPO: 00:00 Additional verifications Patient : No Anesthesia Reactions: Yes (trouble waking up after surgery) Hx Blood Transfusions: No Blood Transfusion Reaction: No Cephalosporin Allergy: No Previous Colonoscopy: No Cardiovascular Assessment Heart Sounds: S1 & S2 Pulse Strength: Strong Pulse Rhythm: Regular Peripheral Edema: No Airway Assessment Mallampati Score:: Class II C-Spine Mobility Assessed: Yes TMJ Mobility Assessed: Yes Dentition: Good Dentition Neurological Assessment Level of Consciousness: Awake and Alert Hx Seizures: No Numbness or tingling in extremities: No Anesthesia Plan Anesthesia Risk discussed: Yes Anesthesia Plan: Patient unable to respond/answer ASA Class: III Anesthesia Type: General
--- NOTE | 2024-11-06 10:13 | P.PNANES_ITS ---
[facility] Anesthesia Record Part I Anesthesia Record I Intake, IV Amount: 800 Hydration: Adequate Estimated blood loss (mL): 25 Urine output (mL): 0 Blood Products used (#): none Blood Pressure: 151/93 SaO2: 93 Pulse Rate: 93 Airway Patency: Patent Respiratory Rate: 16 Temperature: 97.4 F Patient is:: Awake and Stable Stable to PACU at:: 10:00
[2024-11-06] MEDS: PROCHLORPERAZINE 10MG/2ML VIAL 10 MG (10:38)
[2024-11-06] MEDS: RINGERS SOLUTION,LACTATED 3,000 ML 3000 ML IR (10:49)
[2024-11-06] MEDS: RINGERS SOLUTION,LACTATED 6,000 ML 3000 ML IR (10:49)
--- NOTE | 2024-11-06 12:32 | P.PNANES_ITS ---
[facility] Anesthesia Record Part II Anesthesia Record Part II Discharge Time: 10:30 Destination: Surgical Day Care (OP Surgery) PACU nurse assessment reviewed?: Yes Patient Condition:: Good Anesthesia Complications:: None Swallowing reflex intact?: Yes Airway Patency: Patent Cyanosis?: No Blood Pressure: 169/94 SaO2: 95 Respiratory Rate: 18 Pulse Rate: 88 Temperature: 97.4 F Mental Status: Alert & Oriented Pain level:: 0 Nausea and/or vomitting:: None Intake, IV Amount: 0 Hydration: Adequate
[2024-11-07 07:21] LABS: POC Glucose,Bedside 148 (70-110)
== END 2024-11-06 11:20 | disposition home or self-care (01) ==
PROVIDERS: Nurse Anesthetist, Certified Registered; PCP Family Medicine; Visit Provider Orthopaedic Surgery
PROC: (CPT 29805; principal; 2024-11-06 07:30)
DX: S43.431A Superior glenoid labrum lesion of right shoulder, initial encounter (principal); M75.111 Incomplete rotator cuff tear or rupture of right shoulder, not specified as traumatic; M25.811 Other specified joint disorders, right shoulder; E11.9 Type 2 diabetes mellitus without complications; Z79.4 Long term (current) use of insulin
CPT/HCPCS: 29807; 29827; 80048; 82962; 85025; 96374; C1713; C9144; J0171; J0666; J0690; J0780; J1100; J2250; J2405; J3010; J7120

== ENCOUNTER 2024-11-30 11:30 | Outpatient (CLI) | payer MEDICAID, SELFPAY ==
[2024-11-30 18:29] LABS: Basophils # 0.1 K/mm3 (0-0.2); Basophils % 1.1 % (0.1-2.0); Eosinophils # 0.1 K/mm3 (0.0-0.4); Eosinophils % 1.5 % (0.1-12.0); Hematocrit 56.4 % (42.0-52.0); Lymphocytes # 1.3 K/mm3 (0.7-4.5); Lymphocytes % 15.2 % (10-50); Mean Corpuscular HGB Conc 32.6 g/dL (31.8-35.4); Mean Corpuscular Hemoglobin 29.6 pg (27.0-31.2); Mean Corpuscular Volume 90.8 fl (80-94); Mean Platelet Volume 12.1 fl (7.4-10.4); Monocytes # 0.7 K/mm3 (0.1-1.0); Monocytes % 8.7 % (1.7-9.3); Platelet Count 154 K/mm3 (142-424); Red Blood Count 6.21 M/mm3 (4.60-6.20); Red Cell Distribution Width 12.5 % (11.5-17.5); White Blood Count 8.2 K/mm3 (4.8-10.8)
[2024-11-30 18:48] LABS: Hemoglobin 18.3 g/dL (14.1-18.0)
[2024-11-30 20:13] LABS: HIV Combo NEGATIVE (Negative)
[2024-11-30 20:19] LABS: Hepatitis C Ab Qual. W/ RFX NEGATIVE (Negative)
[2024-12-02 11:15] LABS: Testosterone,Total 264 ng/dL (264-916)
== END 2024-11-30 23:59 | disposition home or self-care (01) ==
LOC: LAB.DROPOF 12-01 12:28
PROVIDERS: PCP Family Medicine; Visit Provider Family Medicine
DX: E11.9 Type 2 diabetes mellitus without complications (principal)
CPT/HCPCS: 84403; 85025; 86803; 87389

== ENCOUNTER 2025-01-25 15:00 | Outpatient (CLI) | payer MEDICAID, SELFPAY ==
[2025-01-25 19:26] LABS: Basophils # 0.1 K/mm3 (0-0.2); Basophils % 0.9 % (0.1-2.0); Eosinophils # 0.1 Kmm3 (0.0-0.4); Eosinophils % 1.5 % (0.1-12.0); Hematocrit 55.1 % (42.0-52.0); Lymphocytes # 1.5 K/mm3 (0.7-4.5); Lymphocytes % 17.4 % (10-50); Mean Corpuscular HGB Conc 33.9 g/dL (31.8-35.4); Mean Corpuscular Hemoglobin 29.6 pg (27.0-31.2); Mean Corpuscular Volume 87.3 fl (80-94); Mean Platelet Volume 13.1 fl (7.4-10.4); Monocytes # 0.7 K/mm3 (0.1-1.0); Monocytes % 8.4 % (1.7-9.3); Neutrophils # 6.3 K/mm3 (1.8-7.8); Neutrophils % 71.3 % (37.0-80.0); Nucleated Red Blood Cells # 0 10^3/uL; Nucleated Red Blood Cells % 0 %; Platelet Count 142 K/mm3 (142-424); Red Blood Count 6.31 M/mm3 (4.60-6.20); Red Cell Distribution Width-SD 38.7 fL; White Blood Count 8.8 K/mm3 (4.8-10.8)
[2025-01-25 20:11] LABS: Chloride 101 mmol/L (98-107)
[2025-01-25 20:12] LABS: Albumin Level 4.5 g/dl (3.5-5.0); Potassium 4.4 mmoL/L (3.5-5.1); Sodium 135 mmol/L (136-145)
[2025-01-25 20:14] LABS: Blood Urea Nitrogen 12 mg/dl (9-20); Estimated Glomerular Filt Rate 88 ml/min (>60); GFR (African American) 107 ML/MIN (>60)
[2025-01-25 20:15] LABS: Alanine Aminotransferase 45 U/L (12-78); Albumin/Globulin Ratio 1.9 (1.1-1.8); Alkaline Phosphatase 144 U/L (38-126); Anion Gap 12.4 mEq/L (5-15); Aspartate Amino Transferase 35 U/L (17-59); Bilirubin,Total 0.6 mg/dl (0.2-1.3); Calcium 9.4 mg/dl (8.4-10.2); Carbon Dioxide 26 mmol/L (22.0-30.0); Globulin 2.4 g/dL (1.3-3.2); Glucose 289 mg/dl (74-100); Total Protein,Serum 6.9 g/dl (6.3-8.2)
[2025-01-25 21:08] LABS: MANUAL DIFFERENTIAL MANUAL DIFFERENTIAL (MANUAL DIFF)
[2025-01-25 21:16] LABS: Lymphocytes % 19 % (10-50); Monocytes % 7 % (2-9); Myelocytes % 1 (0-1); Neutrophils % 73 % (42-76); RBC Morphology Normal; Total Cells Counted 100
[2025-01-25 21:19] LABS: Platelet Estimate Clumped
[2025-01-25 21:21] LABS: 25-OH Vitamin D, Total 35.2 ng/mL (30-100); Hemoglobin 18.7 g/dL (14.1-18.0)
== END 2025-01-25 23:59 | disposition home or self-care (01) ==
LOC: LAB.DROPOF 01-26 09:12
PROVIDERS: PCP Family Medicine; Visit Provider Family Medicine
DX: E34.9 Endocrine disorder, unspecified (principal); E11.9 Type 2 diabetes mellitus without complications; R53.83 Other fatigue
CPT/HCPCS: 80053; 82306; 84403; 85007; 85025

== ENCOUNTER 2025-04-26 15:00 | Outpatient (CLI) | payer MEDICAID, SELFPAY | END 2025-04-26 23:59 | disposition home or self-care (01) | LOC: LAB.DROPOF 04-27 11:13 | PROVIDERS: PCP Family Medicine; Visit Provider Family Medicine | DX: E11.9 Type 2 diabetes mellitus without complications (principal) | CPT/HCPCS: 82043; 82570 ==

== ENCOUNTER 2025-06-28 08:44 | Outpatient (CLI) | payer MEDICAID, SELFPAY ==
--- NOTE | 2025-06-28 09:00 | US_ITS ---
FINAL REPORT CLINICAL HISTORY: elevated fib-4 score FINDINGS: HEPATIC ULTRASOUND Multiple transverse and longitudinal scans were performed of the right upper quadrant of the abdomen. FINDINGS: Liver parenchyma appears normal. No intrahepatic duct dilatation is identified. No evidence of common bile duct dilatation is identified. Doppler exam shows normal directional flow within patient hepatic and portal veins. No gallstones are seen. No evidence of perihepatic fluid is identified. IMPRESSION: Unremarkable hepatic ultrasound. HEPATIC ULTRASOUND ELASTOGRAPHY EQUIPMENT: Valles EPIC Elite, C5-1 probe FINDINGS: The median liver stiffness value is 1.44 m/s (6.25 kPa) consistent with moderate to severe fibrosis. The IR/median is 14%. IMPRESSION: Measurements suggestive of moderate to severe fibrosis, in the absence of other known clinical signs, rules out cACLD. If there are known clinical signs, may need further testing for confirmation.. Note: In the setting of elevated liver function tests, postprandial state, and CHF, the degree of liver fibrosis may be overestimated. SRU: <1.37 m/s (5.6 kPa) none to mild fibrosis 1.22-2.2 m/s (5.6 - 15 kPa) moderate to severe fibrosis >2.2 m/s (>15 kPa) advanced fibrosis METAVIR score correlation: >= 1.22 m/s (5.2 kPa) F => 2 >= 1.49 m/s (7.0 kPa) F => 3 >= 2.21 m/s (12.3 kPa) F => 4 Liver stiffness value: <= 5 kPa (1.3 m/s) high probability of being normal < 9 kPa (1.7 m/s) in the absence of other known clinical signs, rules out cACLD. If there are known clinical signs, may need further testing for confirmation. 9-13 kPa (1.7-21 m/s) suggestive of cACLD but need further testing for confirmation >= 13 kPa (2.1 m/s) rules in cACLD > 17 kPa (2.4 m/s) suggestive of CSPH Note: AFRI - acoustic radiation force impulse cACLD - compensated advanced chronic liver diseases CSHP - clinically significant portal hypertension NAFLD - non-alcoholic fatty liver disease Reviewed, Interpreted and Dictated by Rafaela Huntley MD Transcribed by Julee Hines Authenticated and [facility]
== END 2025-06-28 23:59 | disposition home or self-care (01) ==
LOC: RAD 08:44
PROVIDERS: PCP Family Medicine; Visit Provider Family Medicine
DX: K74.00 Hepatic fibrosis, unspecified (principal); K75.81 Nonalcoholic steatohepatitis (NASH); E11.9 Type 2 diabetes mellitus without complications
CPT/HCPCS: 76981

== ENCOUNTER 2025-07-30 23:31 | Outpatient (CLI) | payer MEDICAID, SELFPAY ==
[2025-07-31 02:18] LABS: Hematocrit 50.8 % (42.0-52.0); Hemoglobin 16.5 g/dL (14.1-18.0)
[2025-07-31 03:10] LABS: Hemoglobin A1C 10.4 % (4.0-6.0)
== END 2025-07-30 23:59 | disposition home or self-care (01) ==
LOC: LAB 23:31
PROVIDERS: PCP Family Medicine; Visit Provider Student in an Organized Health Care Education/Training Program
DX: E29.1 Testicular hypofunction (principal); E11.9 Type 2 diabetes mellitus without complications
CPT/HCPCS: 83036; 85014; 85018